=== PATIENT | male | born 1945 | race Two or more races ===

== ENCOUNTER 2017-10-21 14:07 | Inpatient (IN) | payer MEDICARE, OTHER ==
[~2017-10-21] VITALS: Ht 167.6 cm; Wt 67.2 kg
[2017-10-21] MEDS ORDERED: UNOBMED (14:21)
[2017-10-21] MEDS ORDERED: Sodium Chloride 500ML 500 ML IV ONE (14:30)
[2017-10-21 15:00] VITALS: BP 141/68
--- NOTE | 2017-10-21 15:28 | Emergency Room Report ---
History of Present Illness General Chief Complaint: Altered Mental Status Source: Patient Present Illness HPI Patient has been residing at a boarding care facility Patient was found to be becoming more confused Not carrying out his usual daily activities Patient has been eating less than usual No obvious fall was reported Patient himself denies any chest pain denies any back or flank pain There is some baseline underlying confusion unclear regarding Alzheimer's versus dementia versus other chronic pathology Patient was able to ambulate with assistance There was no reports of any fever Allergies: Coded Allergies: No Known Allergies (Unverified , 10/21/17) Patient History Past Medical History: see triage record Pertinent Family History: none Reviewed Nursing Documentation: PMH: Agreed; PSxH: Agreed Nursing Documentation-PMH Past Medical History Deferred: Pt Cognitively Impaired Review of Systems All Other Systems: negative except mentioned in HPI Physical Exam Vital Signs Date Time Temp Pulse Resp B/P (MAP) Pulse Ox O2 Delivery O2 Flow Rate FiO2 10/21/17 14:16 98.6 86 18 150/82 99 Room Air 98.6 Sp02 EP Interpretation: reviewed, normal General Appearance: no apparent distress - However appears weak Head: normocephalic, atraumatic Eyes: bilateral eye PERRL, bilateral eye EOMI ENT: dry mucus membranes Neck: supple, thyroid normal Respiratory: lungs clear Cardiovascular #1: regular rate, rhythm Gastrointestinal: non tender, soft Genitourinary: no CVA tenderness Musculoskeletal: normal inspection, back normal Neurologic: alert, responsive - With some underlying confusion Skin: no rash, other - Poor turgor Lymphatic: normal inspection, no adenopathy Medical Decision Making Diagnostic Impression: Primary Impression: Encephalopathy Additional Impression: Dehydration ER Course Patient is a fairly complex patient with multiple differential to consideration including but not limited to cardiac cardiopulmonary and vascular emergencies Patient does not have any focal deficit and CT imaging has not been obtained at this time MRI will likely be more specific Otherwise thus far blood work is appropriate Patient was provided further hydration I was contacted by primary physician who would like to observe the patient in the hospital And patient admitted for further care Labs Test 10/21/17 14:50 10/21/17 15:19 10/22/17 06:30 White Blood Count 6.3 K/UL (4.8-10.8) Red Blood Count 3.54 M/UL (4.70-6.10) Hemoglobin 12.1 G/DL (14.2-18.0) Hematocrit 33.8 % (42.0-52.0) Mean Corpuscular Volume 95 FL (80-99) Mean Corpuscular Hemoglobin 34.1 PG (27.0-31.0) Mean Corpuscular Hemoglobin Concent 35.8 G/DL (32.0-36.0) Red Cell Distribution Width 11.2 % (11.6-14.8) Platelet Count 99 K/UL (150-450) Mean Platelet Volume 7.2 FL (6.5-10.1) Neutrophils (%) (Auto) 69.8 % (45.0-75.0) Lymphocytes (%) (Auto) 18.3 % (20.0-45.0) Monocytes (%) (Auto) 8.6 % (1.0-10.0) Eosinophils (%) (Auto) 2.4 % (0.0-3.0) Basophils (%) (Auto) 0.9 % (0.0-2.0) Sodium Level 139 MMOL/L (136-145) Potassium Level 4.4 MMOL/L (3.5-5.1) Chloride Level 103 MMOL/L (98-107) Carbon Dioxide Level 28 MMOL/L (21-32) Anion Gap 8 mmol/L (5-15) Blood Urea Nitrogen 16 mg/dL (7-18) Creatinine 1.0 MG/DL (0.55-1.30) Estimat Glomerular Filtration Rate mL/min (>60) Glucose Level 167 MG/DL (74-106) Calcium Level 9.1 MG/DL (8.5-10.1) Total Bilirubin 0.3 MG/DL (0.2-1.0) Aspartate Amino Transf (AST/SGOT) 18 U/L (15-37) Alanine Aminotransferase (ALT/SGPT) 20 U/L (12-78) Alkaline Phosphatase 68 U/L (46-116) Total Creatine Kinase 63 U/L (26-308) Creatine Kinase MB 1.2 NG/ML (0.0-3.6) Creatine Kinase MB Relative Index 1.9 Troponin I 0.000 ng/mL (0.000-0.056) Pro-B-Type Natriuretic Peptide 2593 pg/mL (0-125) Total Protein 7.4 G/DL (6.4-8.2) Albumin 3.4 G/DL (3.4-5.0) Globulin 4.0 g/dL Albumin/Globulin Ratio 0.9 (1.0-2.7) Lipase 107 U/L (73-393) Urine Color Pale yellow Urine Appearance Clear Urine pH 5 (4.5-8.0) Urine Specific [place] 1.020 (1.005-1.035) Urine Protein Negative (NEGATIVE) Urine Glucose (UA) Negative (NEGATIVE) Urine Ketones 1+ (NEGATIVE) Urine Occult Blood 1+ (NEGATIVE) Urine Nitrite Negative (NEGATIVE) Urine Bilirubin Negative (NEGATIVE) Urine Urobilinogen Normal MG/DL (0.0-1.0) Urine Leukocyte Esterase Negative (NEGATIVE) Urine RBC 5-10 /HPF (0 - 0) Urine WBC 0-2 /HPF (0 - 0) Urine Squamous Epithelial Cells Occasional /LPF Urine Bacteria Few /HPF (NONE) Hemoglobin A1c 5.2 % (4.3-6.0) Magnesium Level 1.7 MG/DL (1.8-2.4) Triglycerides Level 74 MG/DL (30-150) Cholesterol Level 104 MG/DL (< 200) LDL Cholesterol 53 mg/dL (<100) HDL Cholesterol 46 MG/DL (40-60) Cholesterol/HDL Ratio 2.3 (3.3-4.4) EKG Diagnostic Results Rate: normal Rhythm: NSR ST Segments: other - Nonspecific ST and T-wave changes Rhythm Strip Diag. Results EP Interpretation: yes Rate: 77 Rhythm: NSR, no PVC's, no ectopy Chest X-Ray Diagnostic Results Chest X-Ray Diagnostic Results : Chest X-Ray Ordered: Yes # of Views/Limited/Complete: 1 View Indication: Chest Pain EP Interpretation: Yes Interpretation: no consolidation, no effusion, no pneumothorax Impression: No acute disease - Cardiomegaly Electronically Signed by: Jasmyn Arango DO Last Vital Signs Date Time Temp Pulse Resp B/P (MAP) Pulse Ox O2 Delivery O2 Flow Rate FiO2 10/21/17 15:00 79 20 141/68 99 Room Air 10/21/17 14:16 98.6 98.6 Status: improved Disposition: ADMITTED INPATIENT Condition: Serious Referrals: Ed Del Castillo MD (PCP) Jasmyn Arango DO Oct 21, 2017 15:28
[2017-10-21 15:33] LABS: ANION GAP 8 mmol/L (5-15); BLOOD UREA NITROGEN 16 mg/dL (7-18); CALCIUM 9.1 MG/DL (8.5-10.1); CARBON DIOXIDE 28 MMOL/L (21-32); CHLORIDE 103 MMOL/L (98-107); POTASSIUM 4.4 MMOL/L (3.5-5.1); SODIUM 139 MMOL/L (136-145)
--- NOTE | 2017-10-21 15:37 | Diagnostic Imaging Report ---
Indication: Chest pain Technique: XRAY Chest 1v Comparison: None FINDINGS/IMPRESSION: Heart is enlarged. Mediastinal contours are sharp. There is an indwelling thoracic aortic stent graft. There is no focal airspace consolidation, pleural effusion or pneumothorax. No acute osseous abnormality identified.
[2017-10-21 15:39] LABS: HEMATOCRIT 33.8 % (42.0-52.0); HEMOGLOBIN 12.1 G/DL (14.2-18.0); MEAN CORPUSCULAR VOLUME 95 FL (80-99); PLATELET COUNT 99 K/UL (150-450); RED BLOOD COUNT 3.54 M/UL (4.70-6.10); RED CELL DISTRIBUTION WIDTH 11.2 % (11.6-14.8); WHITE BLOOD COUNT 6.3 K/UL (4.8-10.8)
[2017-10-21 15:40] LABS: BASOPHILS % (AUTO) 0.9 % (0.0-2.0); EOSINOPHILS % (AUTO) 2.4 % (0.0-3.0); LYMPHOCYTES % (AUTO) 18.3 % (20.0-45.0); MONOCYTES % (AUTO) 8.6 % (1.0-10.0); NEUTROPHILS % (AUTO) 69.8 % (45.0-75.0)
[2017-10-21 15:45] LABS: APPEARANCE,URINE CLEAR; BILIRUBIN, URINE NEGATIVE (NEGATIVE); COLOR,URINE PALE YELLOW; GLUCOSE, URINE (UA) NEGATIVE (NEGATIVE); KETONES,URINE 1+ (NEGATIVE); LEUKOCYTE ESTERASE ,URINE NEGATIVE (NEGATIVE); NITRITE,URINE NEGATIVE (NEGATIVE); PH,URINE 5 (4.5-8.0); PROTEIN,URINE NEGATIVE (NEGATIVE); UROBILINOGEN,URINE NORMAL MG/DL (0.0-1.0)
[2017-10-21 15:46] LABS: ALANINE AMINOTRANSFERASE 20 U/L (12-78); ALKALINE PHOSPHATASE 68 U/L (46-116); ASPARTATE AMINO TRANSFERASE 18 U/L (15-37); BILIRUBIN,TOTAL 0.3 MG/DL (0.2-1.0); CKMB 1.2 NG/ML (0.0-3.6); CREATINE KINASE 63 U/L (26-308)
[2017-10-21 16:03] LABS: ALBUMIN 3.4 G/DL (3.4-5.0)
[2017-10-21 16:05] LABS: ALBUMIN/GLOBULIN RATIO 0.9 (1.0-2.7)
[2017-10-21 16:30] VITALS: BP 155/70
--- NOTE | 2017-10-21 17:11 | History & Physical ---
History and Physical History & Physicial pt was seen in ER full note will be dictated Ed Del Castillo MD Oct 21, 2017 17:11
[2017-10-21] MEDS ORDERED: Acetaminophen 650 MG SUPP RECTAL PRN (17:15)
[2017-10-21 19:00] VITALS: BP 147/82
[2017-10-21 20:00] VITALS: BP 135/79
[2017-10-21] MEDS ORDERED: Zolpidem 5mg tab ORAL PRN (21:00)
[2017-10-21 23:00] VITALS: BP 146/82
[2017-10-22 04:00] VITALS: BP 112/69
[2017-10-22 07:24] LABS: CHOLESTEROL 104 MG/DL (< 200); HDL CHOLESTEROL 46 MG/DL (40-60); TRIGLYCERIDES 74 MG/DL (30-150)
[2017-10-22 08:00] VITALS: BP 148/74
[2017-10-22 12:00] VITALS: BP 149/87
[2017-10-22 12:06] VITALS: BP 149/87
[2017-10-22] MEDS ORDERED: Zolpidem 5mg tab ORAL PRN (14:30)
--- NOTE | 2017-10-22 14:32 | Cardiology Report ---
APPROVED REPORT EXAM: Two-dimensional and M-mode echocardiogram with Doppler and color Doppler. INDICATION Essential hypertension M-Mode DIMENSIONS IVSd1.3 (0.7-1.1cm)Left Atrium (MM)4.1 (1.6-4.0cm) LVDd5.5 (3.5-5.6cm)Aortic Root3.8 (2.0-3.7cm) PWd1.7 (0.7-1.1cm)Aortic Cusp Exc.2.0 (1.5-2.0cm) IVSs1.6 cm LVDs4.8 (2.5-4.0cm) PWs1.8 cm Technically difficult study due to poor acoustical windows. Global left ventricular hypokinesis . Mild left ventricular enlargements . Left ventricular ejection fraction estimated to be 30 %. No evidence of left ventricular hypertrophy . Trace posterior pericardial effusion. Mild bi- atrial enlargements . Left ventricular chamber sizes is within size limits . Focal aortic valve sclerosis with adequate cusp excursion. Thickened mitral valve leaflets with normal excursion. Mitral annulus and aortic root calcification. Pulmonic valve not well visualized. Normal tricuspid valve structure. IVC at normal size with physiologicalc physiologic collapse . A color flow and spectral Doppler study was performed and revealed: No aortic regurgitation. Mild mitral regurgitation. Mitral inflow velocities indicates possible pseudo normalization pattern implying moderately elevated left atrial pressure (Grade II ). Mild tricuspid regurgitation Present . Tricuspid systolic velocities suggests peak right ventricular systolic pressure of 35 mmHg.
--- NOTE | 2017-10-22 14:56 | Cardiology Report ---
APPROVED REPORT EKG Measurement Heart [id number] Atrial fibrillation Cannot rule out Inferior infarct, age undetermined Abnormal ECG
--- NOTE | 2017-10-22 15:02 | General Progress Note ---
Assessment/Plan Problem List: (1) Change in mental status ICD Codes: R41.82 - Altered mental status, unspecified SNOMED: 132848459 (2) Encephalopathy ICD Codes: G93.40 - Encephalopathy, unspecified SNOMED: 03567780 (3) Dehydration ICD Codes: E86.0 - Dehydration SNOMED: 17203629 Assessment/Plan psych consult watch BP on Amlodipine low dose ASA Subjective Allergies: Coded Allergies: No Known Allergies (Unverified , 10/21/17) Subjective gets agitated at night Objective Last 24 Hour Vital Signs Date Time Temp Pulse Resp B/P (MAP) Pulse Ox O2 Delivery O2 Flow Rate FiO2 10/22/17 12:06 98.1 84 18 149/87 (107) 99 98.1 10/22/17 12:00 98.1 84 18 149/87 (107) 99 98.1 10/22/17 09:55 84 148/74 10/22/17 09:00 Room Air 10/22/17 08:00 97.5 84 18 148/74 (98) 99 97.5 10/22/17 04:00 97.5 97 16 112/69 (83) 97 97.5 10/21/17 23:14 Room Air 10/21/17 23:00 97.8 82 16 146/82 (103) 97.8 10/21/17 21:00 Room Air 10/21/17 20:00 97.9 85 20 135/79 (97) 96 97.9 10/21/17 19:00 Room Air 10/21/17 19:00 98.2 77 16 147/82 (103) 98.2 10/21/17 18:00 Room Air 10/21/17 16:30 97.9 70 18 155/70 (98) 100 97.9 10/21/17 16:30 98.6 79 20 141/68 99 Room Air 98.6 10/21/17 15:00 79 20 141/68 99 Room Air Intake and Output 10/21/17 10/22/17 19:00 07:00 Intake Total 500 ml Output Total 250 ml 2500 ml Balance 250 ml -2500 ml Intake IV Total 500 ml Output Urine Total 250 ml 500 ml Hemodialysis UF 2000 ml # Voids 2 2 Laboratory Tests 10/21/17 15:19: Urine Color Pale yellow, Urine Appearance Clear, Urine pH 5, Urine Specific [place] 1.020, Urine Protein Negative, Urine Glucose (UA) Negative, Urine Ketones 1+H, Urine Occult Blood 1+H, Urine Nitrite Negative, Urine Bilirubin Negative, Urine Urobilinogen Normal, Urine Leukocyte Esterase Negative, Urine RBC 5-10H, Urine WBC 0-2, Urine Squamous Epithelial Cells Occasional, Urine Bacteria Few 10/22/17 06:30: Hemoglobin A1c 5.2, Magnesium Level 1.7L, Triglycerides Level 74, Cholesterol Level 104, LDL Cholesterol 53, HDL Cholesterol 46, Cholesterol/HDL Ratio 2.3L Height (Feet): 5 Height (Inches): 6.00 Weight (Pounds): 148 Cardiovascular: normal rate Respiratory/Chest: lungs clear Edema: no edema noted Generalized Ed Del Castillo MD Oct 22, 2017 15:02
[2017-10-22 16:00] VITALS: BP 146/90
[2017-10-22] MEDS: Aspirin Baby 81mg NG SCH (18:38)
[2017-10-22 19:58] VITALS: BP 128/86
[2017-10-23 08:00] VITALS: BP 159/95
[2017-10-23] MEDS: Aspirin Baby 81mg NG SCH (08:32)
--- NOTE | 2017-10-23 11:38 | General Progress Note ---
Assessment/Plan Problem List: (1) Change in mental status ICD Codes: R41.82 - Altered mental status, unspecified SNOMED: 544533843 (2) Encephalopathy ICD Codes: G93.40 - Encephalopathy, unspecified SNOMED: 58256200 (3) Dehydration ICD Codes: E86.0 - Dehydration SNOMED: 91600945 Assessment/Plan psych consult Increase Amlodipine low dose ASA DC to [facility] tomorrow Subjective Allergies: Coded Allergies: No Known Allergies (Unverified , 10/21/17) Subjective gets agitated at night Objective Last 24 Hour Vital Signs Date Time Temp Pulse Resp B/P (MAP) Pulse Ox O2 Delivery O2 Flow Rate FiO2 10/23/17 09:00 Room Air 10/23/17 08:32 100 159/95 10/23/17 08:00 97.7 100 20 159/95 (116) 99 97.7 10/22/17 21:00 Room Air 10/22/17 19:58 98.6 100 19 128/86 (100) 98 98.6 10/22/17 16:00 97.0 103 18 146/90 (108) 99 97.0 10/22/17 12:06 98.1 84 18 149/87 (107) 99 98.1 10/22/17 12:00 98.1 84 18 149/87 (107) 99 98.1 Intake and Output 10/22/17 10/23/17 19:00 07:00 Intake Total 800 ml Balance 800 ml Intake Oral 800 ml # Voids 4 4 # Bowel Movements 4 Height (Feet): 5 Height (Inches): 6.00 Weight (Pounds): 148 Cardiovascular: normal rate Respiratory/Chest: lungs clear Ed Del Castillo MD Oct 23, 2017 11:38
[2017-10-23 12:00] VITALS: BP 155/82
--- NOTE | 2017-10-23 13:22 | Consultation ---
History of Present Illness General Date patient seen: Oct 22, 2017 Chief Complaint: Altered Mental Status Present Illness Allergies: Coded Allergies: No Known Allergies (Unverified , 10/21/17) Medication History Miscellaneous Medications Unable to Obtain Medications (Unable To Obtain Meds), (Reported) Patient History History Provided By: Patient, Medical Record Healthcare decision maker Resuscitation status Full Code Advanced Directive on File Past Medical/Surgical History Past Medical/Surgical History: (1) Dehydration (2) Encephalopathy (3) Change in mental status Review of Systems Psychiatric: Reports: anxiety, depressed feelings, hallucinations Physical Exam General Appearance: alert, agitated Last 24 Hour Vital Signs Date Time Temp Pulse Resp B/P (MAP) Pulse Ox O2 Delivery O2 Flow Rate FiO2 10/23/17 12:00 97.7 89 20 155/82 (106) 99 97.7 10/23/17 09:00 Room Air 10/23/17 08:32 100 159/95 10/23/17 08:00 97.7 100 20 159/95 (116) 99 97.7 10/22/17 21:00 Room Air 10/22/17 19:58 98.6 100 19 128/86 (100) 98 98.6 10/22/17 16:00 97.0 103 18 146/90 (108) 99 97.0 Intake and Output 10/22/17 10/23/17 19:00 07:00 Intake Total 800 ml Balance 800 ml Intake Oral 800 ml # Voids 4 4 # Bowel Movements 4 Height (Feet): 5 Height (Inches): 6.00 Weight (Pounds): 148 Medications Current Medications Medications (Trade) Dose Ordered Sig/Liam Route PRN Reason Start Time Stop Time Status Last Admin Dose Admin Acetaminophen (Tylenol) 650 mg Q4H PRN RECTAL T>100.5 10/21/17 17:15 11/20/17 17:14 Amlodipine Besylate (Norvasc) 7.5 mg DAILY ORAL 10/24/17 09:00 11/21/17 08:59 Aspirin (ASA) 81 mg DAILY NG 10/22/17 15:15 11/21/17 15:14 10/23/17 08:32 Dextrose (Dextrose 50%) 25 ml STAT PRN IV Hypoglycemia 10/21/17 17:15 11/20/17 17:14 Dextrose (Dextrose 50%) 50 ml STAT PRN IV Hypoglycemia 10/21/17 17:15 11/20/17 17:14 Haloperidol Lactate (Haldol) 5 mg Q6H PRN IM Agitation 10/23/17 13:30 11/22/17 13:29 UNV Quetiapine Fumarate (SEROquel) 50 mg TID ORAL 10/23/17 13:30 11/22/17 13:29 UNV Zolpidem Tartrate (Ambien) 5 mg HSPRN PRN ORAL Insomnia 10/22/17 14:30 10/29/17 14:29 Assessment/Plan Status: unchanged Andrew Haynes MD Oct 23, 2017 13:22
[2017-10-23] MEDS ORDERED: Haloperidol 5mg/ml Inj IM PRN (13:30)
[2017-10-23 16:00] VITALS: BP 166/100
[2017-10-23] MEDS: Metoprolol 25mg tab ORAL SCH (17:28)
[2017-10-23 18:40] VITALS: BP 139/92
[2017-10-23 20:00] VITALS: BP 135/94
--- NOTE | 2017-10-23 20:46 | Consultation ---
History of Present Illness General Date patient seen: Oct 23, 2017 Chief Complaint: Altered Mental Status Present Illness HPI 72 yo female with hx of schizophrenia and encephalopathy Patient has been residing at a boarding care facility Patient was found to be becoming more confused the pt was wandering last night and agitated today. the was a poor [place] and has waxing and waning of consciousness Allergies: Coded Allergies: No Known Allergies (Unverified , 10/21/17) Medication History Miscellaneous Medications Unable to Obtain Medications (Unable To Obtain Meds), (Reported) Patient History Limited by: medical condition History Provided By: Medical Record, PMD Healthcare decision maker Resuscitation status Full Code Advanced Directive on File Past Medical/Surgical History Past Medical/Surgical History: (1) Dehydration (2) Encephalopathy (3) Change in mental status Review of Systems Psychiatric: Reports: anxiety, depressed feelings Physical Exam General Appearance: no apparent distress, lethargic, confused Last 24 Hour Vital Signs Date Time Temp Pulse Resp B/P (MAP) Pulse Ox O2 Delivery O2 Flow Rate FiO2 10/23/17 18:40 97.6 82 20 139/92 (108) 99 97.6 10/23/17 17:28 104 166/100 10/23/17 16:00 97.2 104 20 166/100 (122) 99 97.2 10/23/17 12:00 97.7 89 20 155/82 (106) 99 97.7 10/23/17 09:00 Room Air 10/23/17 08:32 100 159/95 10/23/17 08:00 97.7 100 20 159/95 (116) 99 97.7 10/22/17 21:00 Room Air Intake and Output 10/22/17 10/23/17 19:00 07:00 Intake Total 800 ml Balance 800 ml Intake Oral 800 ml # Voids 4 4 # Bowel Movements 4 Height (Feet): 5 Height (Inches): 6.00 Weight (Pounds): 148 Medications Current Medications Medications (Trade) Dose Ordered Sig/Liam Route PRN Reason Start Time Stop Time Status Last Admin Dose Admin Acetaminophen (Tylenol) 650 mg Q4H PRN RECTAL T>100.5 10/21/17 17:15 11/20/17 17:14 Amlodipine Besylate (Norvasc) 7.5 mg DAILY ORAL 10/24/17 09:00 11/21/17 08:59 Aspirin (ASA) 81 mg DAILY NG 10/22/17 15:15 11/21/17 15:14 10/23/17 08:32 Dextrose (Dextrose 50%) 25 ml STAT PRN IV Hypoglycemia 10/21/17 17:15 11/20/17 17:14 Dextrose (Dextrose 50%) 50 ml STAT PRN IV Hypoglycemia 10/21/17 17:15 11/20/17 17:14 Haloperidol Lactate (Haldol) 5 mg Q6H PRN IM Agitation 10/23/17 13:30 11/22/17 13:29 Metoprolol Tartrate (Lopressor) 25 mg DAILY ORAL 10/23/17 17:00 11/22/17 16:59 10/23/17 17:28 Quetiapine Fumarate (SEROquel) 50 mg TID ORAL 10/23/17 13:30 11/22/17 13:29 10/23/17 18:55 Zolpidem Tartrate (Ambien) 5 mg HSPRN PRN ORAL Insomnia 10/22/17 14:30 10/29/17 14:29 Assessment/Plan Assessment/Plan 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
[2017-10-24] VITALS: BP 141/88
[2017-10-24 04:00] VITALS: BP 164/105
[2017-10-24 08:00] VITALS: BP 174/99
[2017-10-24] MEDS: Metoprolol 25mg tab ORAL SCH (08:44)
[2017-10-24] MEDS: Aspirin Baby 81mg NG SCH (08:44)
[2017-10-24 12:00] VITALS: BP 161/89
[2017-10-24] MEDS ORDERED: NORVASC5 MG ORAL (14:07)
[2017-10-24] MEDS ORDERED: LOPRESSOR25 M1 ORAL (14:07)
[2017-10-24] MEDS ORDERED: SEROQUEL25 MG ORAL (14:07)
[2017-10-24] MEDS ORDERED: ASPIRIN81 MG NG (14:07)
[2017-10-24 16:00] VITALS: BP 150/85
--- NOTE | 2017-10-27 11:25 | Discharge Summary ---
Discharge Summary Discharge Summary _ DATE OF ADMISSION: 10/21/2017 DATE OF DISCHARGE: 10/24/2017 REASON FOR ADMISSION: 72 years old male with history of schizophrenia ,hypertension, dementia, presented from the [facility] ,where he resided , for altered mental status. No reports of fever , no chest pain , no shortness of breath . Vital signs were stable except slightly elevated blood pressure 150/82. Pulse oximetry was stable on room air. Patient was able to ambulate with assistance. No reported falls. Laboratory workup revealed no leukocytosis Hemoglobin 12.1 Troponin negative. Electrolytes, LFT ,renal parameters ,CK were all within normal limits. Pro BNP 2593. Urinalysis revealed no evidence of UTI. Chest x-ray revealed cardiomegaly but no acute cardiopulmonary pathology. Since patient did not have any focal deficit, no CT of the head was done. Patient was given bolus of fluid . Patient admitted for further management with diagnoses of encephalopathy. dehydration CONSULTANTS: psychiatrist [facility] COURSE: Patient admitted. Psych evaluation was requested. Psychiatrist diagnosed patient with encephalopathy secondary to general medical condition and psychotic disorder. Psychiatrist optimized psychiatric medication regimen. Follow up chest x-ray revealed no acute cardiopulmonary pathology and no evidence of congestive heart failure. Echocardiogram revealed ejection fraction of 30% and global left ventricular hypokinesis as well as grade 2 diastolic dysfunction. Pro BNP 2593. Troponin negative. Lipid panel stable. Chest x-ray revealed no evidence of CHF. Patient clinically had no evidence of decompensated congestive heart failure. Patient was started on low-dose of aspirin and beta maurice. No diuretic at this time since patient was dehydrated, and improved after bolus of normal saline in ER. Blood pressure was managed with beta maurice and calcium channel maurice, and remained stable. Patient will need close monitoring at the nursing home facility and titration of anti-failure medication regimen. Patient was stable for discharge. FINAL DIAGNOSES: Encephalopathy due to general medical condition Dehydration Hypertension Psychotic disorder Cardiomyopathy DISCHARGE MEDICATIONS: See Medication Reconciliation list. DISCHARGE INSTRUCTIONS: Patient was discharged to nursing home facility for continuation of care ; follow-up with medical doctor at the facility. I have been assigned to dictate discharge summary for this account. I was not involved in the patient's management. Cecile Craig NP Oct 27, 2017 11:24
== END 2017-10-24 16:53 | DRG 71 ==
LOC: EMR 14:30 → 4E 15:09 → EDBEDREQ 15:59 → 4E 16:56
DX: G93.49 Other encephalopathy (principal); I42.9 Cardiomyopathy, unspecified; E86.0 Dehydration; F20.9 Schizophrenia, unspecified; I10 Essential (primary) hypertension; F03.90 Unspecified dementia, unspecified severity, without behavioral disturbance, psychotic disturbance, mood disturbance, and anxiety; F29 Unspecified psychosis not due to a substance or known physiological condition
CPT/HCPCS: 36415; 71045; 80053; 80061; 81003; 82550; 82553; 83036; 83690; 83735; 83880; 84484; 85025; 87040; 87081; 87086; 93005; 93306